=== PATIENT | male | born 1965 ===

== ENCOUNTER 2018-08-05 20:30 | Emergency (ER) | payer SELFPAY ==
[2018-08-05 22:02] LABS: URINE BILIRUBIN NEGATIVE (NEGATIVE); URINE CLARITY Clear (Clear); URINE COLOR Straw (YELLOW); URINE GLUCOSE (UA) NORMAL (Normal); URINE LEUKOCYTE ESTERASE NEG Leu/uL (Negative); URINE PROTEIN NEGATIVE (NEGATIVE); URINE UROBILINOGEN NORMAL mg/dL (0.2-1.0)
[2018-08-05 22:03] LABS: URINE BLOOD TRACE (NEGATIVE)
[2018-08-05] MEDS ORDERED: Sodium Chloride 0.9% 1,000 ML IV STA (22:13)
[2018-08-05 22:18] LABS: BASO # 0.1 K/uL (0.0-0.2); BASO % 0.7 % (0.0-2.0); EOS # 0.2 K/uL (0.0-0.7); EOS % 2.8 % (0.0-4.0); HEMOGLOBIN 15.2 g/dL (12.0-18.0); LYMPH # 2.7 K/uL (1.0-4.3); LYMPH % 37.8 % (20.0-40.0); MEAN CORPUSCULAR HEMOGLOBIN 30.4 pg (27.0-31.0); MEAN CORPUSCULAR HGB CONC 33.1 g/dL (33.0-37.0); MEAN PLATELET VOLUME 9.8 fL (7.2-11.7); MONO # 0.7 K/uL (0.0-0.8); MONO % 9.3 % (0.0-10.0); NEUT # 3.6 K/uL (1.8-7.0); NEUT % 49.4 % (50.0-75.0); NRBC % 0.1 % (0.0-2.0); RED CELL DISTRIBUTION WIDTH 13.7 % (11.5-14.5); WHITE BLOOD COUNT 7.2 K/uL (4.8-10.8)
--- NOTE | 2018-08-05 22:24 | C.PDOC ---
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 Reports subjective fever and burning dysuria. States drinking fluids and taking acetaminophen at home but pain continues. Denies vomiting, dyspnea, swelling. No PMD Time Seen by Provider: 08/05/18 21:10 Chief Complaint (Nursing): Back Pain Past Medical History Vital Signs: Last Vital Signs Temp 98.9 F 08/05/18 20:59 Pulse 56 L 08/05/18 20:59 Resp 18 08/05/18 20:59 BP 135/77 08/05/18 20:59 Pulse Ox 98 08/05/18 20:59 Family History: States: No Known Family Hx - Social History Hx Alcohol Use: Yes Hx Substance Use: No - Immunization History Hx Tetanus Toxoid Vaccination: No Hx Influenza Vaccination: No Hx Pneumococcal Vaccination: No Review Of Systems Except As Marked, All Systems Reviewed And Found Negative. Cardiovascular: Negative for: Chest Pain Respiratory: Negative for: Shortness of Breath Physical Exam - Physical Exam Additional Physical Exam Comments: Constitutional: No acute distress. Head: Normocephalic. Atraumatic. Eyes: PERRL. ENT: Moist mucous membranes. Neck: Supple. Cardiovascular: Regular rate. Radial pulse 2+ bilaterally. Chest: No tenderness. Respiratory: Clear to auscultation bilaterally. GI: Soft. LLQ tenderness with guarding. Nondistended. No mass/hernia visible or palpable. Back: Right CVA tenderness. Musculoskeletal: No tenderness or swelling of extremities. Skin: No rash. Neurologic: Alert, no focal deficit. Male Genitourinary: No testicular tenderness or swelling. No urethral discharge. ED Course And Treatment - Laboratory Results Result Diagrams: 08/05/18 22:15 08/05/18 22:15 O2 Sat by Pulse Oximetry: 98 - CT Scan/US CT Abdomen and Pelvis Other Rad Studies (CT/US): Read By Radiologist, Radiology Report Reviewed CT/US Interpretation: CLINICAL HISTORY: Lower left abdominal pain. TECHNIQUE: Multiple axial, coronal, sagittal CT images were obtained through the abdomen and pelvis after administration of intravenous contrast material. Oral contrast is not administered. VISI 100 MLS. DLP 372.76. . COMMENTS: The liver is of uniform attenuation without mass or defect. There is no intra or extrahepatic biliary ductal dilatation. The spleen is normal. The gallbladder is within normal limits. The pancreas is of normal contour and attenuation characteristics. There is no evidence of adrenal mass. Small fat containing umbilical hernia is seen. Both kidneys demonstrate prompt and equal n ephrograms. The kidneys are normal in size, shape and configuration. No renal or ureteral calculi are identified. There is no hydroureter or hydronephrosis. In the mid pole of the left kidney posteriorly note is made of complex lesion measuring approximately 8 mm in diameter. Small renal cell carcinoma is not completely excluded. There is evidence of cortical scarring and thinning in the mid pole of the right kidney. So tiny cortical cysts are present in the left kidney. Consider short term follow-up study in 3-6 months. No evidence for appendicitis. There is severe circumferential wall thickening of jejunal loops especially in the left lower quadrant consistent with severe enteritis. No evidence for small or large bowel obstruction. There is no evidence of abdominal ascites or lymphadenopathy. There is no evidence of intrinsic or extrinsic bladder mass. There is no pelvic ascites or lymphadenopathy. Images of the lung bases show no evidence of pleural or parenchymal mass. There are no pleural effusions. The bony structures are free of lytic or blastic lesions. IMPRESSION: 1. Small fat containing umbilical hernia. 2. In the mid pole of the left kidney posteriorly note is made of complex lesion measuring approximately 8 mm in diameter. Small renal cell carcinoma is not completely excluded. Consider short term follow-up study in 3-6 months. 3. There is e vidence of cortical scarring and thinning in the mid pole of the right kidney. 4. So tiny cortical cysts are present in the left kidney. 5. Severe enteritis. Medical Decision Making Medical Decision Making: Plan: IVF, Toradol, labs, UA, CT abdomen/pelvis with IV contrast. 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 Disposition - Disposition Referrals: [facility] [Outside] Nick Cash MD [Staff Provider] - Sunil Melissa MD [Staff Provider] - Disposition: HOME/ ROUTINE Disposition Time: 00:15 Condition: STABLE Additional Instructions: COMMENTS: The liver is of uniform attenuation without mass or defect. There is no intra or extrahepatic biliary ductal dilatation. The spleen is normal. The gallbladder is within normal limits. The pancreas is of normal contour and attenuation characteristics. There is no evidence of adrenal mass. Small fat containing umbilical hernia is seen. Both kidneys demonstrate prompt and equal nephrograms. The kidneys are normal in size, shape and configuration. No renal or ureteral calculi are identified. There is no hydroureter or hydronephrosis. In the mid pole of the left kidney posteriorly note is made of complex lesion measuring approximately 8 mm in diameter. Small renal cell carcinoma is not completely excluded. There is evidence of cortical scarring and thinning in the mid pole of the right kidney. So tiny cortical cysts are present in the left kidney. Consider short term follow-up study in 3-6 months. No evidence for appendicitis. There is severe circumferential wall thickening of jejunal loops especially in the left lower quadrant consistent with severe enteritis. No evidence for small or large bowel obstruction. There is no evidence of abdominal ascites or lymphadenopathy. There is no evidence of intrinsic or extrinsic bladder mass. There is no pelvic ascites or lymphadenopathy. Images of the lung bases show no evidence of pleural or parenchymal mass. There are no pleural effusions. The bony structures are free of lytic or blastic lesions. IMPRESSION: 1. Small fat containing umbilical hernia. 2. In the mid pole of the left kidney posteriorly note is made of complex lesion measuring approximately 8 mm in diameter. Small renal cell carcinoma is not completely excluded. Consider short term follow-up study in 3-6 months. 3. There is evidence of cortical scarring and thinning in the mid pole of the right kidney. 4. So tiny cortical cysts are present in the left kidney. 5. Severe enteritis. Prescriptions: Ciprofloxacin [Cipro] 500 mg PO BID #14 tab Metronidazole [Flagyl] 500 mg PO Q8 #30 tab Instructions: Inflammatory Bowel Disease (DC), Kidney Cancer Forms: Geneva Mars (Turkish) Print Language: WELSH - Clinical Impression Clinical Impression: Enteritis, Kidney mass
[2018-08-05 22:33] LABS: ALB/GLOB RATIO 1.2 (1.0-2.1); ALBUMIN 4.4 g/dL (3.5-5.0); ALT/SGPT 45 U/L (21-72); AST/SGOT 41 U/L (17-59); BLOOD UREA NITROGEN 18 mg/dL (9-20); CALCIUM 9.7 mg/dl (8.6-10.4); GFR NON-AFRICAN AMERICAN > 60; LIPASE 311 U/L (23-300)
[2018-08-05] MEDS ORDERED: Sodium Chloride 0.9% 1,000 ML ONE (22:39)
[2018-08-05] MEDS ORDERED: Iohexol 350mg/ml 100 ML ONE (22:48)
[2018-08-06 00:05] VITALS: O2SAT 98
[2018-08-06 00:37] VITALS: BP 120/56; PULSE 71; RESP 16; TEMP 99.1
--- NOTE | 2018-08-06 12:46 | CT ---
Date of service: 08/05/2018 PROCEDURE: CT Abdomen and Pelvis with contrast HISTORY: LLQ pain, R flank pain, h/o L kidney tumor COMPARISON: None. TECHNIQUE: Following the intravenous administration of iodinated contrast material, a CT examination of the abdomen and pelvis performed from the domes of the diaphragms to the symphysis pubis with reformatted datasets provided in axial, sagittal and coronal planes. Oral contrast was not administered as per referring physician request. Coronal and sagittal reformats were generated. contrast dose: Visipaque 320, 100 cc Radiation dose: Total exam DLP = 372.76 mGy-cm. This CT exam was performed using one or more of the following dose reduction techniques: Automated exposure control, adjustment of the mA and/or kV according to patient size, and/or use of iterative reconstruction technique. FINDINGS: LOWER THORAX: Minimal bilateral basilar dependent atelectasis identified. LIVER: Unremarkable. No gross lesion or ductal dilatation. GALLBLADDER AND BILE DUCTS: Gallbladder is contracted and otherwise unremarkable. No biliary tree dilatation grossly evident. PANCREAS: Unremarkable. No gross lesion or ductal dilatation. SPLEEN: Unremarkable. ADRENALS: Unremarkable. No mass. KIDNEYS AND URETERS: No obstructive uropathy bilaterally or radiodense urolithiasis. No right renal solid mass. There is 1 cm lucency exophytic off the upper pole left kidney as well as an upper pole left chronic renal infarcts. There is peripheral enhancing the briscoe the lucency which is nonspecific. Internal septations are questioned. This may represent a complex cyst or a follow-up ultrasound is advised for added characterization. VASCULATURE: Unremarkable. No aortic aneurysm. No aortic atherosclerotic calcification or mural plaque present. BOWEL: Evaluation of the gastrointestinal tract is limited due to the lack of oral contrast administration. Stomach is mildly distend with retained fluid and gas. No bowel obstruction appreciable. Moderate retained scattered throughout the large bowel which is otherwise unremarkable appearing. No definite suspicious small bowel findings. APPENDIX: Normal appendix. PERITONEUM: Unremarkable. No free fluid. No free air. LYMPH NODES: Unremarkable. No enlarged lymph nodes. BLADDER: Unremarkable. REPRODUCTIVE: Upper limits normal size prostate gland. BONES: No acute fracture. OTHER FINDINGS: None. IMPRESSION: 1. No bowel or urinary tract obstruction, mesenteric edema, ascites or free intra peritoneal gas collection. No intra peritoneal abscess. 2. 1 cm lesion at the upper pole left kidney exophytic posteriorly is small and difficult to characterize but does not appear to represent a simple cyst. Follow-up ultrasound recommended for added characterization. 3. The remainder the examination appears unremarkable. Concordant preliminary report from [facility], 08/06/2018, with exception of the bowel which does not appear acute in my evaluation.
== END 2018-08-06 00:37 | disposition home or self-care (01) ==
LOC: C.ER 20:30
DX: K52.9 Noninfective gastroenteritis and colitis, unspecified (principal); N28.89 Other specified disorders of kidney and ureter
CPT/HCPCS: 74177; 80053; 81001; 83690; 85025; 87086; 96361; 96374; 99285; J1885; J7030; Q9967